=== PATIENT | male | born 1995 | race American Indian/Alaskan Native ===

== ENCOUNTER 2022-05-28 11:26 | Emergency (ER) | payer SELFPAY ==
[2022-05-28 11:38] VITALS: BP 139/75; PULSE 113; RESP 19; TEMP 36.8; O2SAT 96; BMI 31.3
--- NOTE | 2022-05-28 12:04 | CT_ITS ---
WS: [id number] CT HEAD TECHNIQUE: Noncontrast CT of the head obtained from the skullbase to the vertex. CLINICAL INFORMATION: headache COMPARISON: None. DLP: 1009.[address] scans at [facility] use at least one of these dose optimization techniques: automated e xposure control; mA and/or kV adjustment per patient size (includes targeted exams where dose is matc hed to clinical indication); or iterative reconstruction. FINDINGS: No evidence of intracranial hemorrhage or mass effect. Ventricular system and basal cisterns are dixon nt. No extra-axial fluid collections. No evidence of mass or mass effect. Normal trujillo-white different iation. Paranasal sinuses and mastoid air cells are well aerated. .Normal visualized soft tissues. CT/CT head wo con* [id number] IMPRESSION: 1. No evidence of intracranial hemorrhage or mass effect 2. No acute intracranial findings.
--- NOTE | 2022-05-28 14:11 | W.ED.HA ---
HPI - Headache General: Chief Complaint: Headache Stated Complaint: Headache Time Seen by Provider: 05/28/22 14:11 Source: patient Mode of arrival: ambulatory Limitations: no limitations History of Present Illness: Patient is a 27-year-old male who presents to ED today with what he describes as a migraine headache. Patient states he was diagnosed years ago with excessive migraine headaches he states that stemmed from a concussion after getting struck in the head by a 2 x 4 board. Patient states he used to take sumatriptan for his headaches but states he has not had a migraine in 1.5 years. He states this headache began earlier today and feels like previous HAs. He is currently rating it at a 6-7/10. He states pain is worse with light and sound which is consistent with his previous migraine headaches. No recent injury or trauma. He has not been having fevers. No neck pain or stiffness. He does not complain of any visual loss or changes. States he carries a lot of stress in his neck/shoulders and thinks this could be contributing. MD elicited complaint: headache and migraine Pertinent past history: migraines Onset (ago): hour(s) Onset description: gradually Severity: moderate Pain scale (0-10): 7 Exacerbating factors: light and noise Relieving factors: other (reports HAs are usually alleviated by rest, dark/quiet room) Context: occurred at rest Associated symptoms: Reports no associated symptoms; Deny chest pain, confusion, fever(s), malaise, nausea, rash or vomiting Treatments prior to arrival: acetaminophen and ibuprofen Review of Systems Const: Denies: fever(s), chills, body aches, fatigue or malaise Eyes: Denies: change in vision, blurry vision, photophobia, eye discomfort or floaters ENMT: Denies: throat pain, odynophagia, nasal discharge or nasal congestion Card: Denies: chest pain Resp: Denies: dyspnea GI: Denies: nausea or vomiting Musc: Denies: neck pain, back pain, extremity pain or joint pain Skin/Breast: Denies: rash Neuro: Reports: headache(s); Denies: numbness in extremities, weakness in extremities, sensory changes, lack of coordination, difficulty walking, frequent falls, dizziness, vertigo, confusion, behavioral changes, Slurred speech present, difficulty communicating thoughts, seizure-like activity or involuntary movements Physical Exam Const: COMMON NORMALS: no acute distress, average body habitus, patient oriented x3, no limitations, alert and well nourished GENERAL APPEARANCE: cooperative ORIENTATION/CONSCIOUSNESS: Yes awake, Yes oriented to person, Yes oriented to place and Yes oriented to time HENMT: COMMON NORMALS: normocephalic and atraumatic HEAD & SCALP: normal to inspection, normocephalic and atraumatic Eye: GENERAL EYE: appearance normal, both eyes and all related structures Neck/C-Spine: COMMON NORMALS: no meningeal signs Neuro: JOHANNA COMA SCALE: document GCS findings Johanna coma scale eye opening: Spontaneous Alviso coma scale verbal response: Orientated Johanna coma scale motor response: Obey commands Alviso coma scale total score: 15 COMMON NORMALS: patient oriented x3, CN's II-XII intact bilaterally, moves all extremities, no focal motor deficits and no sensory deficits noted SENSORIUM/ORIENTATION: Yes alert, Yes oriented to person, Yes oriented to place and Yes oriented to time MENINGEAL SIGNS: Yes no meningeal signs Skin: COMMON NORMALS: no rashes or lesions noted GENERAL SKIN EXAM: no rashes or lesions noted Course Vital Signs: Vital signs: Vital Signs Temperature 98.2 F 05/28/22 11:38 Pulse Rate 113 H 05/28/22 11:38 Respiratory Rate 19 H 05/28/22 11:38 Blood Pressure 139/75 05/28/22 11:38 Pulse Oximetry 96 05/28/22 11:38 MDM - Headache Medical Decision Making CT ordered by another provider in triage. This is negative. PALACIOS down from a 6-7/10 to a 0. PALACIOS similar to previous migraines. No red flags on history or physical exam. Patient states he carries a lot of stress in my shoulders and thinks this could have contributed to his headache. He states he has tried Robaxin previously that seemed to help. I think this is reasonable. Will place referral to get him set up with a PCP. Return to ED precautions given. Lab Data Radiology Impressions Head CT 05/28/22 12:04 IMPRESSION: 1. No evidence of intracranial hemorrhage or mass effect 2. No acute intracranial findings. Discharge Plan Discharge Patient Disposition: Home Clinical Impression: Tension headache Condition: Stable Prescriptions: New methocarbamol 500 mg tablet 500 mg PO Q6H Qty: 14 0RF Discharge Orders: Discharge ED (Routine); Ordered 05/28/22 Ordered By: Trixie Leija Coding Level of Care Code ED Web Marketing Manager for Chg Fwd Exam Detailed
[2022-05-28] MEDS: ketorolac 60 mg/2 mL INJ IM (14:41)
[2022-05-28] MEDS: SUMAtriptan 6 mg/0.5 mL SDV SUBCUT (14:46)
[2022-05-28 15:44] VITALS: BP 140/97; PULSE 86; RESP 18; O2SAT 97
--- NOTE | 2022-05-29 14:50 | DCPLANNER ---
manager athletics had message to speak with patient about getting a primary care physician. manager athletics called patient at phone number [phone], unable to speak with patient at this time, a voicemail was left for patient to return gearcase assembler phone call.
--- NOTE | 2022-05-30 10:41 | DCPLANNER ---
Addendum entered by Liberty Jo 07/02/22 16:29: Patients appointment scheduled with Dr. Kimble - appointment was rescheduled. Original Note: manager it security had message to speak with patient about getting patient established with a primary care physician. Patient stated that he would like to get established with Dr. Gomez, casey saw operator called clinic, the earlies that patient could be seen was August. manager it security offered to get patient established with Dr. Kimble, patient stated that would be fine. manager it security called [facility], spoke with Becca, gave clinic patients information. A follow up appointment was scheduled for Friday, June 19, 2022 at 1:[address] Hall. manager it security called patient and gave him the appointment information.
== END 2022-05-28 15:48 | disposition home or self-care (01) ==
PROVIDERS: Emergency Provider Physician Assistant
DX: G44.209 Tension-type headache, unspecified, not intractable (principal)
CPT/HCPCS: 70450; 96372; 99284; J1885; J3030

== ENCOUNTER 2022-06-05 01:20 | Emergency (ER) | payer SELFPAY ==
--- NOTE | 2022-06-05 01:30 | XRR_ITS ---
PROCEDURE INFORMATION: Exam: XR Abdomen Exam date and time: 06/05/2022 1:34 AM Age: 27 years old Clinical indication: Abdominal pain; Generalized; Patient HX: C/O abd pain with constipation. No bm x 2 days. TECHNIQUE: Imaging protocol: Radiologic exam of the abdomen. Views: Frontal supine view of the abdomen. 1 View. COMPARISON: No relevant prior studies available. FINDINGS: Gastrointestinal tract: There is a non-obstructive bowel gas pattern. There is no abnormal dilatation of bowel loops. Some gas and fecal material is seen throughout the colon, suggestive of [id number] constipation. There is no pneumatosis or mass effect. There is no organomegaly. Intraperitoneal space: No definite free air on the supine view exam. Bones/joints: There are no acute osseous abnormalities noted. Soft tissues: No radiopaque foreign body or abnormal opacity. XR/XR KUB [id number] IMPRESSION: Nonobstructive bowel gas pattern. [id number] constipation.
--- NOTE | 2022-06-05 01:31 | W.ED.ABDPA2 ---
HPI - Abdominal Pain General: Chief Complaint: Abdominal Pain Stated Complaint: Abd Pain Time Seen by Provider: 06/05/22 01:27 History of Present Illness: 27-year-old male patient comes in [facility] with complaints of constipation. Patient reports is day 3 without a good bowel movement. Patient reports poor appetite and abdominal discomfort. Patient appears in no pain. Patient appears in no acute distress. Associated Symptoms: Reports constipation and nausea Review of Systems General: Reports: 10 or more systems reviewed and unremarkable except in HPI and below Card: Denies: chest pain Resp: Denies: dyspnea GI: Reports: abdominal pain, nausea and constipation Physical Exam Const: COMMON NORMALS: alert HENMT: COMMON NORMALS: normocephalic HEAD & SCALP: normocephalic Neck/C-Spine: COMMON NORMALS: full ROM Resp: COMMON NORMALS: normal respiratory effort and clear to auscultation bilaterally AUSCULTATION: clear to auscultation bilaterally Cardio: COMMON NORMALS: regular rate RATE: regular rate GI: COMMON NORMALS: Soft to palpation and non-tender AUSCULTATION: Yes normoactive bowel sounds PALPATION: Yes Soft to palpation Extremity: COMMON NORMALS: normal to inspection Neuro: SENSORIUM/ORIENTATION: Yes alert Skin: COMMON NORMALS: no rashes or lesions noted GENERAL SKIN EXAM: no rashes or lesions noted Course Vital Signs: Vital signs: Vital Signs Temperature 97.9 F 06/05/22 01:34 Pulse Rate 118 H 06/05/22 01:34 Respiratory Rate 18 06/05/22 01:34 Blood Pressure 145/97 06/05/22 01:34 Pulse Oximetry 97 06/05/22 01:34 MDM - Abdominal Pain Medical Decision Making 27-year-old male patient comes in today with complaints of constipation. On exam patient's abdomen soft with normal active bowel sounds. Patient appears nontoxic. Patient appears in no pain. Vital signs are normal. Differential diagnosis includes constipation, malingering, bowel obstruction. KUB noted of moderate amount of stool in the colon. Patient was given 1 L of IV fluids and a dose of lactulose. Patient was recommended to use MiraLAX 1 capful 3 times a day until good bowel movement. Patient was also recommended to drink at least 3 L of water/Gatorade a day while using MiraLAX for constipation. Discharge Plan Discharge Patient Disposition: Home Clinical Impression: Constipation Qualifiers: Constipation type: unspecified constipation type Qualified Code(s): K59.00 - Constipation, unspecified Condition: Stable Prescriptions: New Miralax 17 gram/dose powder 17 g PO TID PRN (Reason: constipation) Qty: 238 0RF No Action methocarbamol 500 mg tablet 500 mg PO Q6H Qty: 14 0RF Discharge Orders: Discharge ED (Routine); Ordered 06/05/22 Ordered By: Jona Haynes Discharge Diet: As Directed Discharge Activity: Increase activity as tolerated Patient Instructions: Constipation (ED) Activity Restrictions/Additional Instructions: Drink plenty of fluids. Use MiraLAX 17 g 3 times a day until a good bowel movement. Drink at least 3 L of water/Gatorade mixture while using the MiraLAX to maintain hydration and electrolytes. Follow-up with primary care as needed. Eat a healthy diet with plenty of fiber and fresh fruits and vegetables. Continue with MiraLAX 17 g daily to maintain normal bowel movements reducing the dosing for watery stools or anal leakage. Coding Level of Care Code ED Concrete Batch Plant Operator for Chg Fwd Exam Comprehensive
[2022-06-05 01:34] VITALS: BP 145/97; PULSE 118; RESP 18; TEMP 36.6; O2SAT 97; BMI 28.5
[2022-06-05] MEDS: sodium chloride 0.9% 1,000 ML 999 ML IV (01:58)
[2022-06-05] MEDS: lactulose oral liq 20 gm/30 mL UDC 30 GM PO (01:58)
[2022-06-05] MEDS: ondansetron 2 mg/ML SDV 2 mL 4 MG IVP (01:59)
== END 2022-06-05 03:05 | disposition home or self-care (01) ==
PROVIDERS: Emergency Provider Nurse Practitioner Family
DX: K59.00 Constipation, unspecified (principal)
CPT/HCPCS: 74018; 96361; 96374; 99284; J2405; J7030

== ENCOUNTER → 2022-08-13 11:15 | Outpatient (BNVA) | payer SELFPAY | PROVIDERS: Visit Provider Family Medicine | DX: I10 Essential (primary) hypertension (principal); M25.511 Pain in right shoulder; M25.512 Pain in left shoulder; G89.29 Other chronic pain; M24.411 Recurrent dislocation, right shoulder; L25.9 Unspecified contact dermatitis, unspecified cause; M54.9 Dorsalgia, unspecified; M62.838 Other muscle spasm | CPT/HCPCS: 80053; 80061; 85025 ==

== ENCOUNTER 2022-10-19 22:16 | Emergency (ER) | payer SELFPAY ==
[2022-10-19 22:35] VITALS: BP 138/84; PULSE 105; RESP 18; TEMP 36.5; O2SAT 96; BMI 34.0
--- NOTE | 2022-10-19 22:45 | CTR_ITS ---
PROCEDURE INFORMATION: Exam: CT Head Without Contrast Exam date and time: 10/19/2022 10:54 PM Age: 27 years old Clinical indication: Injury or trauma; Fall; Concussion/head injury; Additional info: Fall down stairs hit head, worst headache, denies loc TECHNIQUE: Imaging protocol: Computed tomography of the head without contrast. Radiation optimization: All CT scans at this facility use at least one of these dose optimization techniques: automated exposure control; mA and/or kV adjustment per patient size (includes targeted exams where dose is matched to clinical indication); or iterative reconstruction. COMPARISON: CT head wo con* [id number] 05/28/2022 12:18 PM RADIATION DOSE METRICS: Total DLP (mGy-cm): 1079.05 FINDINGS: Brain: No focal hemorrhage or midline shift is identified. Cerebral ventricles: No ventriculomegaly or evidence of acute hydrocephalus. Paranasal sinuses: The partially assessed sinuses are grossly clear. Mastoid air cells: Visualized mastoid air cells are well aerated. Bones/joints: No displaced skull fracture is noted. Soft tissues: Unremarkable. CT/CT head wo con* [id number] IMPRESSION: No acute intracranial abnormality.
--- NOTE | 2022-10-19 22:45 | XRR_ITS ---
PROCEDURE INFORMATION: Exam: XR Right Hip Exam date and time: 10/19/2022 10:50 PM Age: 27 years old Clinical indication: Injury or trauma; Fall; Blunt trauma (contusions or hematomas); Right; Hip; Additional info: Fall with hip pain TECHNIQUE: Imaging protocol: Radiologic exam of the Right hip. Views: 1 view hip with pelvis when performed. COMPARISON: CR XR KUB [id number] 06/05/2022 1:34 AM FINDINGS: Bones/joints: Unremarkable. No acute fracture. Soft tissues: Mild right hip soft tissue swelling. XR/XR hip RT 2-3V wo/w pel* [id number] IMPRESSION: No acute findings.
--- NOTE | 2022-10-19 22:46 | W.ED.FALL ---
HPI - Fall General: Chief Complaint: Fall Stated Complaint: fell hit head and hip Time Seen by Provider: 10/19/22 22:39 History of Present Illness: Patient is a 27-year-old male comes to the ED after fall injury. Patient says injury occurred just prior to arrival. He was walking down his steps and fell down 3 steps because he slipped. He states that his right hip hit the stairs and the right side of his head hit the stairs as well. Denies any loss of consciousness but has a 10 out of 10 headache on the right side of his hand. He also was complaining of having 10 out of 10 pain in his right hip with some swelling there as well. He states it hurts for him to move his right leg. Denies any neuro symptoms such as vision changes, numbness tingling 1 side of face or body or any weakness to 1 side of face or body. Associated symptoms-after fall: Reports headache(s); Denies abdominal pain, chest pain, hematuria or neck pain Review of Systems Const: Denies: fever(s), chills or fatigue Eyes: Denies: change in vision or eye discomfort ENMT: Denies: throat pain, odynophagia, nasal discharge or nasal congestion Card: Denies: chest pain, palpitations, edema, swelling of feet/ankles, dyspnea on exertion or orthopnea Resp: Denies: dyspnea, productive cough or non-productive cough GI: Denies: abdominal pain, nausea, vomiting, diarrhea, constipation or hematochezia : Denies: flank pain, difficulty urinating, dysuria or hematuria Musc: Reports: extremity pain (Right hip); Denies: neck pain, back pain or extremity swelling Skin/Breast: Denies: rash or new lesions Neuro: Reports: headache(s); Denies: numbness in extremities or weakness in extremities PFS ED PFSH: Medical History Acute idiopathic urticaria Anxiety Back pain Depression Hypertension Recurrent dislocation, right shoulder Scoliosis Shoulder pain Family History Mother CAD (coronary artery disease) Hypertension Diabetes Grandmother Diabetes Mother Hyperlipidemia Denies family history of Clotting disorder Dementia Chronic kidney disease (CKD) Anesthesia complication Bleeding disorder Lung disease Cancer Stroke Social History Smoking and tobacco status: current every day smoker cigars Cigars smoked per week: 30 Second hand smoke exposure: No Smoking risk assessment/counseling performed?: No Alcohol intake: former Year of sobriety/quit date alcohol: 22 Desire information about alcohol rehabilitation?: No Counseling given: No Desire information about substance/drug rehabilitation?: No Counseling given: No Adopted: No Caregiver/support person: No Lives independently: Yes Marital status: Single service: No Current occupational status: unemployed History of recent travel: No Current gender identity: Male Physical Exam Const: COMMON NORMALS: no acute distress, patient oriented x3 and alert GENERAL APPEARANCE: cooperative and comfortable HENMT: COMMON NORMALS: normocephalic HEAD & SCALP: normocephalic MOUTH: Normal oral and palatal mucosa present THROAT: posterior oropharynx normal and uvula midline Eye: COMMON NORMALS: Equal, round and reactive pupils present and EOMs intact bilaterally GENERAL EYE: appearance normal, both eyes and all related structures PUPIL: Yes Equal, round and reactive pupils present Neck/C-Spine: COMMON NORMALS: supple GENERAL: Yes normal visual inspection Lymph: LYMPHATIC: no lymphadenopathy noted Resp: COMMON NORMALS: normal respiratory effort, No retractions, No use of accessory muscles and clear to auscultation bilaterally AUSCULTATION: clear to auscultation bilaterally Cardio: COMMON NORMALS: regular rate, regular rhythm, S1 normal heart sound present, S2 normal heart sound present, No gallops present (Cardio), No clicks present (Cardio), No murmurs present (Cardio) and Peripheral pulses 2+ throughout RATE: regular rate RHYTHM: regular rhythm HEART SOUNDS: S1 normal heart sound present and S2 normal heart sound present PERIPHERAL PULSES: Peripheral pulses 2+ throughout GI: COMMON NORMALS: Normal to inspection, nondistended, normoactive bowel sounds present, Soft to palpation, non-tender and no masses PALPATION: Yes Soft to palpation : COMMON NORMALS: Yes no CVA tenderness BLADDER/KIDNEY EXAM: Yes no CVA tenderness Back/Pelvis: COMMON NORMALS: no CVA tenderness Extremity: GENERAL: Yes normal exam except as noted Neuro: COMMON NORMALS: patient oriented x3, CN's II-XII intact bilaterally, moves all extremities, no focal motor deficits and no sensory deficits noted SENSORIUM/ORIENTATION: Yes alert SENSORY EXAM: Yes extremities (intact) MOTOR EXAM: 5/5 motor strength present throughout Skin: COMMON NORMALS: no rashes or lesions noted GENERAL SKIN EXAM: no rashes or lesions noted and dry skin Course Vital Signs: Vital signs: Vital Signs Temperature 97.7 F 10/19/22 22:35 Pulse Rate 98 10/19/22 23:49 Respiratory Rate 18 10/19/22 23:49 Blood Pressure 131/82 10/19/22 23:49 Pulse Oximetry 96 10/19/22 23:49 Oxygen Delivery Me thod 10/19/22 22:35 MDM - Fall Medical Decision Making Patient is a 27-year-old male comes to the ED after fall injury. Patient says injury occurred just prior to arrival. He was walking down his steps and fell down 3 steps because he slipped. He states that his right hip hit the stairs and the right side of his head hit the stairs as well. Denies any loss of consciousness but has a 10 out of 10 headache on the right side of his hand. He also was complaining of having 10 out of 10 pain in his right hip with some swelling there as well. Vitals are stable. Exam is benign and patient appears in no acute distress or pain. Neuro exam shows no deficits. Head CT shows no acute findings and hip x-ray shows no acute fractures or findings. He was given a dose of Toradol here in the ED to help with his headache and right hip pain. Patient was diagnosed with minor head injury and contusion of right hip. Told to follow-up with his PCP in the next week for reevaluation. Patient understood and agreed with plan. Lab Data Radiology Impressions Head CT 10/19/22 22:45 IMPRESSION: No acute intracranial abnormality. Hip/Pelvis X-Ray 10/19/22 22:45 IMPRESSION: No acute findings. Discharge Plan Discharge Patient Disposition: Home Clinical Impression: Contusion of hip, right Qualifiers: Encounter type: initial encounter Qualified Code(s): S70.01XA - Contusion of right hip, initial encounter Minor head injury without loss of consciousness Qualifiers: Encounter type: initial encounter Qualified Code(s): S09.90XA - Unspecified injury of head, initial encounter Condition: Stable Prescriptions: New ibuprofen 800 mg tablet 800 mg PO Q8H PRN (Reason: pain) Qty: 20 0RF No Action hydrocortisone 1 % cream 1 applic topical TID PRN (Reason: skin irritation) Qty: 28.4 1RF Rx Instructions: use TID for 10 days quetiapine [Seroquel] 300 mg tablet 300 mg PO DAILY Qty: 30 0RF loratadine 10 mg tablet 10 mg PO DAILY Qty: 30 2RF cyclobenzaprine 5 mg tablet 10 mg PO TID PRN (Reason: muscle spasm) Qty: 14 0RF duloxetine 30 mg capsule,delayed release(DR/EC) 30 mg PO BID Discharge Orders: Discharge ED (Routine); Ordered 10/19/22 Ordered By: Khanh Randall Referrals: Rickey Edmondson MD [Primary Care Provider] - Discharge Diet: Regular Discharge Activity: Increase activity as tolerated Patient Instructions: Head Injury (ED), Hip Contusion (ED) Activity Restrictions/Additional Instructions: Follow-up with medical provider as directed in the next 5 to 7 days for reevaluation. Take medications as prescribed. Return to the ER or your medical provider if condition worsens. Please read and understand discharge instructions. Thank you for choosing [facility] for your healthcare needs today. Please realize this is an emergency room and that we are providing you with a medical screening exam and this may not be complete and all inclusive of all the testing and or work up that you may need to determine your ailment or severity of your illness. It is very important that you follow up as instructed or that you return to the Emergency Department should you have concerns or if your condition changes or worsens in any way. Coding Level of Care Code ED Account Manager Trainee for Alena Barrett Exam Comprehensive
[2022-10-19] MEDS: ketorolac 60 mg/2 mL INJ IM (23:13)
[2022-10-19 23:49] VITALS: BP 131/82; PULSE 98; RESP 18; O2SAT 96
== END 2022-10-19 23:50 | disposition home or self-care (01) ==
PROVIDERS: Emergency Provider Physician Assistant; PCP Family Medicine
DX: S09.8XXA Other specified injuries of head, initial encounter (principal); S70.01XA Contusion of right hip, initial encounter; I10 Essential (primary) hypertension; F17.210 Nicotine dependence, cigarettes, uncomplicated; W10.8XXA Fall (on) (from) other stairs and steps, initial encounter
CPT/HCPCS: 70450; 73502; 96372; 99284; J1885

== ENCOUNTER → 2022-11-07 16:27 | Outpatient (BNVA) | payer SELFPAY | PROVIDERS: PCP Family Medicine; Visit Provider Emergency Medicine | DX: B34.9 Viral infection, unspecified (principal); J02.9 Acute pharyngitis, unspecified | CPT/HCPCS: 87071; 87880 ==

== ENCOUNTER 2022-12-14 21:29 | Emergency (ER) | payer OTHER, SELFPAY ==
[2022-12-14 21:37] VITALS: BP 126/81; PULSE 125; RESP 16; TEMP 36.2; O2SAT 94; BMI 37.1
[2022-12-14 23:41] VITALS: BP 139/79; PULSE 105; RESP 16; O2SAT 99
--- NOTE | 2022-12-15 00:55 | PC.NURSE ---
Patients also in the ER. Both pts refused to stay in their rooms, on monitors. Advised by staff and security that they can not keep leaving their rooms and walking back and forth. demanding to leave but refusal to sign AMA paperwork. then walked into pts room and told him we are leaving now and do not sign anything . Pt let out of ER by security solutions engineer.
--- NOTE | 2022-12-15 02:33 | W.ED.BACK ---
HPI - Back Pain/Injury General: Chief Complaint: Back Pain/Injury Stated Complaint: back pain, fell on right hip Time Seen by Provider: 12/15/22 00:03 Source: patient History of Present Illness: 27-year-old male he says he has had back pain on and off for quite some time. He evidently fell yesterday landing on his right hip, with shortness back worse. He is able to bear weight on the right hip. Pain does not run into his legs. MD elicited complaint: back pain and back injury Pertinent past history: prior back pain Onset (ago): hour(s) Timing: constant Severity: moderate Similar Symptoms Previously: Yes Location: lumbar spine Radiation: buttocks Associated symptoms: Deny abdominal pain, difficulty walking or fever(s) Review of Systems Const: Denies: fever(s) Card: Denies: chest pain Resp: Denies: dyspnea GI: Denies: abdominal pain Neuro: Denies: difficulty walking PFSH ED PFSH: Medical History Acute idiopathic urticaria Anxiety Back pain Depression Hypertension Recurrent dislocation, right shoulder Scoliosis Shoulder pain Family History Mother CAD (coronary artery disease) Hypertension Diabetes Grandmother Diabetes Mother Hyperlipidemia Denies family history of Clotting disorder Dementia Chronic kidney disease (CKD) Anesthesia complication Bleeding disorder Lung disease Cancer Stroke Social History Smoking and tobacco status: current every day smoker cigars Cigars smoked per week: 30 Second hand smoke exposure: No Smoking risk assessment/counseling performed?: No Alcohol intake: former Year of sobriety/quit date alcohol: 21 Desire information about alcohol rehabilitation?: No Counseling given: No Desire information about substance/drug rehabilitation?: No Counseling given: No Adopted: No Caregiver/support person: No Lives independently: Yes Marital status: Single service: No Current occupational status: unemployed History of recent travel: No Current gender identity: Male Course Vital Signs: Vital signs: Vital Signs Temperature 97.1 F L 12/14/22 21:37 Pulse Rate 105 H 12/14/22 23:41 Respiratory Rate 16 12/14/22 23:41 Blood Pressure 139/79 12/14/22 23:41 Pulse Oximetry 99 12/14/22 23:41 Oxygen Delivery Me thod 12/14/22 23:41 MDM - Back Pain/Injury Medical Decision Making This patient left before completion of his evaluation. X-rays were to be ordered, but the patient decided to leave. Medically, he appeared quite stable Discharge Plan Discharge Patient Disposition: Left Without Being Seen Clinical Impression: Back pain Coding Level of Care Code ED Drug Regulatory Affairs Specialist for Alena Barrett
== END 2022-12-15 00:53 | disposition left against medical advice (07) ==
PROVIDERS: Emergency Provider Emergency Medicine; PCP Family Medicine
DX: M54.9 Dorsalgia, unspecified (principal); Z53.21 Procedure and treatment not carried out due to patient leaving prior to being seen by health care provider; F17.210 Nicotine dependence, cigarettes, uncomplicated; I10 Essential (primary) hypertension
CPT/HCPCS: 99281

== ENCOUNTER 2023-04-01 20:00 | Outpatient (CLI) | payer OTHER, SELFPAY | END 2023-04-02 06:04 | disposition home or self-care (01) | LOC: SLEEP 04-08 15:20 | PROVIDERS: PCP Family Medicine; Visit Provider Family Medicine | DX: G47.33 Obstructive sleep apnea (adult) (pediatric) (principal); R06.83 Snoring | CPT/HCPCS: 95810 ==

== ENCOUNTER 2023-04-09 11:08 | Outpatient (CLI) | payer OTHER, SELFPAY ==
--- NOTE | 2023-04-09 10:45 | USCV_ITS ---
Quincy Ovalle Age: 28 Gender: M : 1995 Exam Date: 04/09/2023 11:56 Ordering Phys: Rickey Edmondson MD Technologist: CT Exam Location: [facility] [place]_ Indication: pain PROCEDURES: Venous duplex imaging was performed in only the right lower extremity. On the right side, the common femoral, superficial femoral, profunda femoral, popliteal, posterior tibial, greater saphenous veins and the peroneal trunk were identified and interrogated in the standard fashion. FINDINGS: Normal 2-D Doppler and augmentation and compressibility throughout the lower extremity venous structures. Additional imaging through the proximal calf veins also reveals no thrombus. Limited evaluation of the greater saphenous vein is patent with no thrombus. CONCLUSIONS No DVT right lower extremity. Dr. Amanda Lee DO (Electronically Signed) Final Date: 09 Apr 2023 16:02 S
== END 2023-04-09 11:09 | disposition home or self-care (01) ==
LOC: RAD 11:13
PROVIDERS: PCP Family Medicine; Visit Provider Family Medicine
DX: M79.604 Pain in right leg (principal)
CPT/HCPCS: 93971

== ENCOUNTER 2023-04-23 11:48 | Emergency (ER) | payer OTHER, SELFPAY ==
[2023-04-23 11:55] VITALS: BP 145/93; PULSE 92; RESP 18; TEMP 36.9; O2SAT 92; BMI 35.5
--- NOTE | 2023-04-23 12:23 | ED_ITS ---
HPI - Chest Pain General: Chief Complaint: Chest Pain Stated Complaint: Chest Pain/ High blood pressure Time Seen by Provider: 04/23/23 12:16 Source: patient Mode of arrival: ambulatory Limitations: no limitations History of Present Illness: This 28-year-old male with a past history of anxiety, depression and hypertension was brought in by mom for evaluation of left-sided chest pain that started at 1030 this morning. Patient just woke up from sleep when he started experiencing the pain. The pain also has a pressure component to it. It did not radiate and there was no associated nausea, shortness of breath or vomiting. Pain is worsened by certain movements like rotation or abduction of the s houlder. Currently, he is pain-free. Mom notes that she has a history of coronary artery disease and heart disease does run in the family. So when patient complained of the chest pain this morning, she decided to bring him in to be checked out. Review of Systems Const: Denies: chills, body aches or change in appetite Eyes: Denies: change in vision or eye discharge ENMT: Denies: throat pain, dental pain or nasal discharge Card: Reports: chest pain : Denies: dysuria Musc: Denies: neck pain or back pain Neuro: Denies: headache(s) or weakness in extremities Psych: Denies: depression Allen/Lymph: Denies: easy bruising All/Imm: Denies: urticaria, tongue swelling or facial swelling PFSH ED PFSH: Medical History Acute idiopathic urticaria Anxiety Back pain Depression Hypertension Recurrent dislocation, right shoulder Scoliosis Shoulder pain Family History Mother CAD (coronary artery disease) Hypertension Diabetes Grandmother Diabetes Mother Hyperlipidemia Denies family history of Clotting disorder Dementia Chronic kidney disease (CKD) Anesthesia complication Bleeding disorder Lung disease Cancer Stroke Social History Smoking and tobacco status: former smoker Quit status (tobacco): has quit using tobacco Former quit date comment: 12/2022 Second hand smoke exposure: No Smoking risk assessment/counseling performed?: No Alcohol intake: former Year of sobriety/quit date alcohol: 21 Desire information about alcohol rehabilitation?: No Counseling given: No Substance/Drug Use: former Date of last use: marijuana Desire information about substance/drug rehabilitation?: No Counseling given: No Adopted: No Caregiver/support person: No Lives independently: Yes Marital status: Single service: No Current occupational status: unemployed Do you think of yourself as: Straight/Heterosexual Current gender identity: Male Physical Exam Const: COMMON NORMALS: no acute distress, patient oriented x3, no limitations and alert HENMT: COMMON NORMALS: normocephalic HEAD & SCALP: normocephalic Eye: COMMON NORMALS: EOMs intact bilaterally Neck/C-Spine: COMMON NORMALS: full ROM and supple Chest: COMMONS NORMALS: normal inspection of the chest Resp: COMMON NORMALS: normal respiratory effort, No retractions, No use of accessory muscles and clear to auscultation bilaterally AUSCULTATION: clear to auscultation bilaterally Cardio: COMMON NORMALS: regular rate, regular rhythm and No murmurs present (Cardio) RATE: regular rate RHYTHM: regular rhythm GI: COMMON NORMALS: Normal to inspection, nondistended, normoactive bowel sounds present and non-tender : COMMON NORMALS: Yes no CVA tenderness BLADDER/KIDNEY EXAM: Yes no CVA tenderness Back/Pelvis: COMMON NORMALS: no CVA tenderness and no thoracic nor lumbar tenderness Extremity: GENERAL: Yes normal exam except as noted Neuro: COMMON NORMALS: patient oriented x3 and no focal motor deficits SENSORIUM/ORIENTATION: Yes alert Psych: COMMON NORMALS: mental status grossly normal and cooperative Course Vital Signs: Vital signs: Vital Signs Temperature 98.4 F 04/23/23 11:55 Pulse Rate 84 04/23/23 15:59 Respiratory Rate 18 04/23/23 11:55 Blood Pressure 134/88 04/23/23 15:59 Pulse Oximetry 95 04/23/23 15:59 Oxygen Delivery Me thod Room Air 04/23/23 13:35 MDM - Chest Pain Medical Decision Making Medical decision making: History as above. Patient's chest pain is reproducible with certain movements and also by direct p ressure on the left anterior chest wall. Initial troponin and repeat troponin 2 hours later are both negative with a delta of 0. Chest x-ray is negative for any acute intrathoracic process. Completed blood tests are unremarkable. At this time, I do not believe patient is having an acute coronary syndrome. Differentials like pneumonia, pleural effusion, pericardial effusion and pulmonary embolism are highly unlikely. I believe his pain is musculoskeletal in nature. He was advised to take [id number] Tylenol or Motrin as needed. He will follow-up with his primary care provider for reevaluation. Reasons to return were discussed. Patient and mom verbalized understanding and agree with the plan. Lab Data 04/23/23 14:10 04/23/23 14:10 Radiology Impressions Chest X-Ray 04/23/23 13:39 IMPRESSION: The lung volumes are low which may exaggerate the bronchovascular bundles with some subsegmental atelectasis left lung base more so than right. Some early peribronchial inflammation could also present in this fashion. Laboratory Results WBC 10.1 10^3/uL (4.0-10.0) H 04/23/23 14:10 RBC 5.76 10^6/uL (4.1-5.3) H 04/23/23 14:10 Hgb 16.8 g/dL (11.7-16.6) H 04/23/23 14:10 Hct 49.0 % (42.0-52.0) 04/23/23 14:10 MCV 85.1 fl (80-94) 04/23/23 14:10 MCH 29.2 pg (28.0-34.0) 04/23/23 14:10 MCHC 34.3 g/dL (30.0-36.0) 04/23/23 14:10 RDW 12.6 % (12.1-15.1) 04/23/23 14:10 Plt Count 230 10^3/cmm (130-400) 04/23/23 14:10 MPV 9.8 fL (7.4-10.4) 04/23/23 14:10 Neut % (Auto) 59.4 % 04/23/23 14:10 Lymph % (Auto) 29.2 % 04/23/23 14:10 [place] % (Auto) 7.7 % 04/23/23 14:10 Eos % (Auto) 1.6 % 04/23/23 14:10 Baso % (Auto) 0.9 % 04/23/23 14:10 Neut # (Auto) 5.98 10^3/uL (1.8-7.7) 04/23/23 14:10 Lymph # (Auto) 2.9 10^3/uL (0.8-4.8) 04/23/23 14:10 [place] # (Auto) 0.8 10^3/uL (0.2-0.9) 04/23/23 14:10 Eos # (Auto) 0.2 10^3/uL (0.0-0.8) 04/23/23 14:10 Baso # (Auto) 0.1 10^3/uL (0.0-0.1) 04/23/23 14:10 Nucleated RBC % (auto) 0 % 04/23/23 14:10 Nucleated RBCs # 0.0 /100WBC 04/23/23 14:10 Sodium 139 mmol/L (136-145) 04/23/23 14:10 Potassium 4.2 mmol/L (3.5-5.1) 04/23/23 14:10 Chloride 103 mmol/L (98-107) 04/23/23 14:10 Carbon Dioxide 26 mmol/L (22-29) 04/23/23 14:10 Anion Gap 14.2 (5-19) 04/23/23 14:10 BUN 8 mg/dL (6-20) 04/23/23 14:10 Creatinine 0.7 mg/dL (0.7-1.2) 04/23/23 14:10 GFR Calculation 135.3 mL/min (90-130) H 04/23/23 14:10 Glucose 85 mg/dL (65-115) 04/23/23 14:10 Calculated Osmolality 286 mOsm/kg (285-295) 04/23/23 14:10 Calcium 9.7 mg/dL (8.5-10.5) 04/23/23 14:10 Total Bilirubin 0.6 mg/dL (0.15-1.2) 04/23/23 14:10 AST 29 U/L (0-40) 04/23/23 14:10 ALT 58 U/L (0-41) H 04/23/23 14:10 Alkaline Phosphatase 107 U/L (40-130) 04/23/23 14:10 Troponin T Baseline 6 ng/L (0-15) 04/23/23 14:10 Troponin T 120 Minute 6.00 ng/L (0-15) 04/23/23 16:15 Total Protein 7.6 g/dL (6.6-8.7) 04/23/23 14:10 Albumin 4.4 g/dL (3.5-5.2) 04/23/23 14:10 Globulin 3.2 g/dL (1.3-4.6) 04/23/23 14:10 Urine Color Light yellow (Yellow) 04/23/23 14:52 Urine Appearance Clear (CLEAR) 04/23/23 14:52 Urine pH 7 (5-7) 04/23/23 14:52 Ur Specific [place] 1.015 (1.005-1.030) 04/23/23 14:52 Urine Protein Neg (Negative) 04/23/23 14:52 Urine Glucose (UA) Norm (Normal) 04/23/23 14:52 Urine Ketones Negative (Negative) 04/23/23 14:52 Urine Blood Neg (Negative) 04/23/23 14:52 Urine Nitrate Negative (Negative) 04/23/23 14:52 Urine Bilirubin Neg (Negative) 04/23/23 14:52 Urine Urobilinogen Norm mg/dL (Negative) 04/23/23 14:52 Ur Leukocyte Esterase Negative (Negative) 04/23/23 14:52 Urine Opiates Screen Negative ng/mL (Negative) 04/23/23 14:52 Ur Barbiturates Screen Negative ng/mL (Negative) 04/23/23 14:52 Ur Phencyclidine Scrn Negative ng/mL (Negative) 04/23/23 14:52 Ur Amphetamines Screen Negative ng/mL (Negative) 04/23/23 14:52 U Benzodiazepines Scrn Negative ng/mL (Negative) 04/23/23 14:52 Urine Cocaine Screen Negative ng/mL (Negative) 04/23/23 14:52 U Marijuana (THC) Screen Negative ng/mL (Negative) 04/23/23 14:52 EKG Data EKG 1: Interpretation: 1227 hrs.: Sinus rhythm, rate of 88, normal axis, normal intervals, no STEMI. Discharge Plan Discharge Patient Disposition: Home Clinical Impression: Musculoskeletal chest pain Condition: Stable Prescriptions: No Action sumatriptan succinate 50 mg tablet 50 mg PO .COMPLEX Qty: 20 4RF Rx Instructions: 50 mg orally; loratadine 10 mg tablet 10 mg PO DAILY Qty: 90 2RF losartan 50 mg tablet 50 mg PO DAILY Qty: 90 1RF (DME) CPAP 14 setting See Rx Instructions .Route .MEDSUPPLY Qty: 1 0RF Rx Instructions: As directed (DME) CPAP mask, tubing, supplies See Rx Instructions .Route .MEDSUPPLY Qty: 1 1RF Rx Instructions: As directed ibuprofen 200 mg Tablet 800 mg PO Q6H PRN (Reason: Pain) Discharge Orders: Discharge ED (Routine); Ordered 04/23/23 Ordered By: Trisha Lea Referrals: Rickey Edmondson MD [Primary Care Provider] - Patient Instructions: Opioid Safety, Pain Management Activity Restrictions/Additional Instructions: Take [id number] Tylenol or Motrin as needed for pain. Follow-up with your primary care physician within a week for reevaluation. Return if you develop any new or worsening symptoms. Coding Level of Care Code ED Columnist/Commentator for Alena Barrett
--- NOTE | 2023-04-23 12:23 | ECG_ITS ---
[facility] Test Date: 2023-04-23 Pat Name: Quincy Ovalle Department: Room: Gender: Male Product Scientist: : 1995 Requested By: Joseph Martinez Order Number: [id number] Diaz MD: Jigar Vargas M.D. Measurements Intervals [place] Rate: 88 P: 51 [place]: 157 QRS: -3 QRSD: 126 T: 29 QT: 365 QTc: 443 Interpretive Statements SINUS RHYTHM POSSIBLE RIGHT VENTRICULAR CONDUCTION DELAY [RSR (QR) IN V1/V2] No previous ECG available for comparison Electronically Signed On 04-23-2023 13:19:42 CDT by Jigar Vargas M.D. [email or web address]
[2023-04-23 13:35] VITALS: BP 150/102; PULSE 88; O2SAT 95
--- NOTE | 2023-04-23 13:39 | XRR_ITS ---
PROCEDURE INFORMATION: Exam: XR Chest Exam date and time: 04/23/2023 1:43 PM Age: 28 years old Clinical indication: Pain; Angina pectoris; Additional info: Chest pain TECHNIQUE: Imaging protocol: Radiologic exam of the chest. 1image(s) are provided. Views: 1 view. COMPARISON: CR XR KUB [id number] 06/05/2022 1:34 AM. No previous chest radiograph is currently available. FINDINGS: Lungs: The lung volumes are low which may exaggerate the basilar and bronchovascular markings with some linear subsegmental atelectasis. No lobar consolidation is appreciated. Pleural spaces: No pneumothorax or significant pleural effusion is appreciated. Heart/Mediastinum: The cardiomediastinal silhouette is within normal. No cardiac decompensation is appreciated. Diaphragm: The hemidiaphragms are symmetric. Bones/joints: Osseous alignment is maintained.No displaced fracture or dislocation is appreciated. Soft tissues: No radiopaque foreign body or subcutaneous emphysema is appreciated. XR/XR chest 1V portable [id number] IMPRESSION: The lung volumes are low which may exaggerate the bronchovascular bundles with some subsegmental atelectasis left lung base more so than right. Some early peribronchial inflammation could also present in this fashion.
[2023-04-23 14:15] VITALS: BP 143/102; PULSE 92; O2SAT 95
[2023-04-23 14:22] LABS: Basophils # 0.1 10^3/uL (0.0-0.1); Basophils % 0.9 %; Eosinophils # 0.2 10^3/uL (0.0-0.8); Eosinophils % 1.6 %; Hemoglobin 16.8 g/dL (11.7-16.6); Lymphocytes # 2.9 10^3/uL (0.8-4.8); Lymphocytes % 29.2 %; Mean Corpuscular HGB Conc 34.3 g/dL (30.0-36.0); Mean Corpuscular Hemoglobin 29.2 pg (28.0-34.0); Mean Corpuscular Volume 85.1 fl (80-94); Mean Platelet Volume 9.8 fL (7.4-10.4); Monocytes # 0.8 10^3/uL (0.2-0.9); Monocytes % 7.7 %; Neutrophils # 5.98 10^3/uL (1.8-7.7); Neutrophils % 59.4 %; Nucleated Red Blood Cells % 0 %; Platelet Count 230 10^3/cmm (130-400); Red Blood Count 5.76 10^6/uL (4.1-5.3); Red Cell Distribution Width 12.6 % (12.1-15.1); White Blood Count 10.1 10^3/uL (4.0-10.0)
[2023-04-23 14:41] LABS: Troponin(5th) Baseline 6 ng/L (0-15)
[2023-04-23 14:44] LABS: Alanine Aminotransferase 58 U/L (0-41); Albumin Level 4.4 g/dL (3.5-5.2); Alkaline Phosphatase 107 U/L (40-130); Anion Gap 14.2 (5-19); Aspartate Amino Transferase 29 U/L (0-40); Blood Urea Nitrogen 8 mg/dL (6-20); Calcium 9.7 mg/dL (8.5-10.5); Carbon Dioxide 26 mmol/L (22-29); Chloride 103 mmol/L (98-107); Globulin 3.2 g/dL (1.3-4.6); Glomerular Filtration Rate 135.3 mL/min (90-130); Glucose 85 mg/dL (65-115); Osmolality Calculated 286 mOsm/kg (285-295); Potassium 4.2 mmol/L (3.5-5.1); Sodium 139 mmol/L (136-145); Total Bilirubin 0.6 mg/dL (0.15-1.2); Total Protein 7.6 g/dL (6.6-8.7)
[2023-04-23 14:58] LABS: Add Urine Microscopic? NO; Charge for UA Resulting for Rev
[2023-04-23 15:05] VITALS: BP 133/91; PULSE 88; O2SAT 96
[2023-04-23 15:27] LABS: Bilirubin Urine Neg (Negative); Blood Urine Neg (Negative); Glucose Urine UA Norm (Normal); Ketones Urine Negative (Negative); Leukocyte Esterase Urine Negative (Negative); Nitrate Urine Negative (Negative); Protein Urine Neg (Negative); Specific Gravity, Urine 1.015 (1.005-1.030); Urine Appearance Clear (CLEAR); Urine Color Light yellow (Yellow); Urobilinogen Urine Norm (Negative); pH Urine 7 (5-7)
[2023-04-23 15:35] LABS: Amphetamines Screen Urine Negative (Negative); Barbiturates Screen Urine Negative (Negative); Benzodiazepines Screen Urine Negative (Negative); Cocaine Screen Urine Negative (Negative); Opiate Screen Urine Negative (Negative); PCP Screen Urine Negative (Negative); THC Screen Urine Negative (Negative)
[2023-04-23 15:59] VITALS: BP 134/88; PULSE 84; O2SAT 95
[2023-04-23 17:01] LABS: Troponin 5 2HR Delta 0 ABS# (0-10)
[2023-04-23 17:09] VITALS: BP 134/88; PULSE 80; RESP 20; O2SAT 97
== END 2023-04-23 17:12 | disposition home or self-care (01) ==
PROVIDERS: Emergency Provider Family Medicine; PCP Family Medicine
DX: R07.89 Other chest pain (principal)
CPT/HCPCS: 36415; 71045; 80053; 80306; 81003; 84484; 85025; 93005; 99285

== ENCOUNTER → 2023-11-04 18:38 | Outpatient (BNVA) | payer SELFPAY | PROVIDERS: PCP Family Medicine; Visit Provider Registered Nurse Neonatal Intensive Care | DX: R50.9 Fever, unspecified (principal) | CPT/HCPCS: 87400 ==

== ENCOUNTER 2024-10-20 18:19 | Emergency (ER) | payer OTHER, SELFPAY ==
[2024-10-20 18:23] VITALS: BP 145/83; PULSE 92; RESP 16; TEMP 36.7; O2SAT 96; BMI 29.3
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
[2024-10-20 19:35] VITALS: RESP 18; O2SAT 96
[2024-10-20] MEDS: HYDROmorphone 1 mg/mL INJ 1 mL IVP (19:35)
[2024-10-20 19:38] VITALS: PULSE 90; RESP 18; O2SAT 97
[2024-10-20] MEDS: iohexol 350 mg/mL 500 mL Btl (per mL) IV (19:38)
[2024-10-20 19:42] VITALS: BP 148/81; PULSE 92; RESP 18; O2SAT 94
[2024-10-20 20:18] VITALS: BP 147/93; PULSE 89; O2SAT 97
== END 2024-10-20 20:19 | disposition home or self-care (01) ==
PROVIDERS: Emergency Provider Physician Assistant; PCP Family Medicine
DX: S20.219A Contusion of unspecified front wall of thorax, initial encounter (principal); V89.2XXA Person injured in unspecified motor-vehicle accident, traffic, initial encounter; Z87.891 Personal history of nicotine dependence; I10 Essential (primary) hypertension
CPT/HCPCS: 70450; 71260; 72125; 74177; 96374; 99285; J1171

== ENCOUNTER → 2024-10-29 12:25 | Outpatient (BNVA) | payer SELFPAY | PROVIDERS: PCP Family Medicine; Visit Provider Nurse Practitioner Family | DX: J02.9 Acute pharyngitis, unspecified (principal) | CPT/HCPCS: 87071; 87880 ==

== ENCOUNTER 2024-11-20 19:05 | Inpatient (IN) | payer SELFPAY ==
[2024-11-20 19:19] VITALS: BP 122/67; PULSE 107; RESP 20; TEMP 36.6; O2SAT 97; BMI 27.4
[2024-11-20 19:28] LABS: Basophils # 0.1 10^3/uL (0.0-0.1); Basophils % 0.8 %; Eosinophils # 0.1 10^3/uL (0.0-0.8); Eosinophils % 0.7 %; Hematocrit 48.7 % (37-53); Lymphocytes # 2.2 10^3/uL (0.8-4.8); Lymphocytes % 21.7 %; Mean Corpuscular HGB Conc 35.1 g/dL (30-55); Mean Corpuscular Hemoglobin 29.6 pg (27-33); Mean Corpuscular Volume 84.3 fl (82-101); Mean Platelet Volume 10.1 fL (7.4-10.4); Monocytes # 0.5 10^3/uL (0.2-0.9); Monocytes % 4.8 %; Neutrophils # 7.38 10^3/uL (1.8-7.7); Neutrophils % 71.4 %; Nucleated Red Blood Cells % 0 %; Platelet Count 290 10^3/cmm (157-399); Red Blood Count 5.78 10^6/uL (3.85-5.65); Red Cell Distribution Width 12.2 % (12.1-15.1); White Blood Count 10.33 10^3/uL (3.29-11.43)
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
[2024-11-20 19:47] LABS: Alanine Aminotransferase 24 U/L (0-41); Albumin Level 4.5 g/dL (3.5-5.2); Alkaline Phosphatase 85 U/L (40-130); Aspartate Amino Transferase 25 U/L (0-40); Blood Urea Nitrogen 8 mg/dL (6-20); Calcium 9.6 mg/dL (8.5-10.5); Carbon Dioxide 23 mmol/L (22-29); Chloride 105 mmol/L (98-107); Creatinine Clr Calc Pharmacy 134.4086; Globulin 2.7 g/dL (1.3-4.6); Glomerular Filtration Rate 115.1 mL/min (90-130); Glucose 147 mg/dL (65-115); Osmolality Calculated 293 mOsm/kg (285-295); Sodium 141 mmol/L (136-145); Total Bilirubin 0.3 mg/dL (0.15-1.2); Total Protein 7.2 g/dL (6.6-8.7)
[2024-11-20 19:49] LABS: Acetaminophen < 5.0 ug/mL (10-30); Alcohol Level < 10 mg/dL (0-10); Anion Gap 16.8 (5-19); Potassium 3.8 mmol/L (3.5-5.1); Salicylate < 0.3 mg/dL (3-10)
--- NOTE | 2024-11-20 20:39 | PC.NURSE ---
96 Hour Involuntary Hold Patient Rights have been read to the patient and a copy of the same has been given to him. Window And Siding Craftsman Gaby was present at bedside during the presentation of Rights.
[2024-11-20 21:18] VITALS: BP 123/76; PULSE 94; RESP 16; O2SAT 97
[2024-11-20 21:27] VITALS: BP 124/88; PULSE 88; RESP 18; TEMP 36.9; O2SAT 97
[2024-11-20 21:55] VITALS: BP 124/88; PULSE 88; RESP 18; TEMP 36.9; O2SAT 97
[2024-11-20] MEDS: acetaminophen 325 mg Tablet 650 MG PO (22:04)
[2024-11-20] MEDS: trazodone 50 mg Tablet PO (22:04)
[2024-11-20] MEDS: hyDROXYzine 25 mg Capsule 50 MG PO (22:04)
[2024-11-20] MEDS: OLANZapine 5 mg ODT PO (22:05)
[2024-11-21 06:00] VITALS: BP 124/85; PULSE 80; RESP 18; O2SAT 99
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
[2024-11-21] MEDS: metoprolol succinate ER (24 HR) 25 mg Tablet PO (08:31)
[2024-11-21] MEDS: cetirizine 10 mg Tablet PO (08:31)
[2024-11-21 09:16] LABS: Amphetamines Screen Urine Negative (Negative); Barbiturates Screen Urine Negative (Negative); Benzodiazepines Screen Urine Negative (Negative); Cocaine Screen Urine Negative (Negative); Opiate Screen Urine Negative (Negative); PCP Screen Urine Negative (Negative); THC Screen Urine Positive (Negative)
[2024-11-21] MEDS: ibuprofen 600 mg Tablet PO ×2 (09:45→20:29)
[2024-11-21 14:00] VITALS: BP 119/73; PULSE 84; RESP 16; TEMP 36.7; O2SAT 95
[2024-11-21] MEDS: acetaminophen 325 mg Tablet 650 MG PO (14:40)
[2024-11-21 19:59] VITALS: BP 128/85; PULSE 71; RESP 18; TEMP 36.6; O2SAT 98
[2024-11-21] MEDS: OLANZapine 5 mg ODT PO (20:20)
[2024-11-22 06:00] VITALS: BP 119/85; PULSE 73; RESP 16; TEMP 36.3; O2SAT 98
[2024-11-22] MEDS: cetirizine 10 mg Tablet PO (08:14)
[2024-11-22] MEDS: acetaminophen 325 mg Tablet 650 MG PO ×2 (08:14→11:27)
[2024-11-22] MEDS: metoprolol succinate ER (24 HR) 25 mg Tablet PO (08:14)
[2024-11-22 14:00] VITALS: BP 119/72; PULSE 71; RESP 16; TEMP 36.4; O2SAT 95
[2024-11-22] MEDS: hyDROXYzine 25 mg Capsule 50 MG PO (14:59)
--- NOTE | 2024-11-22 19:47 | P.NPUPN_ITS ---
Subjective NPU 2 Subjective: 29-year-old male admitted with depressio n and suicidal ideation. The patient had reported an extended history of PTSD symptoms. He had reported having stopped his medication for several months. He had reported that Wellbutrin had not been helpful for his anxiety. He had reported previously having been on citalopram for depression and reported that he had been struggling with his mood and anxiety for several months. He had reported struggles with sleep for several months as well. He reported having no suicidal thoughts today and stated that he was hopeful about returning home soon. He had reported that he had recently lost his job over the last month. Mental Status Exam 2 MSE Comments: This is an overweight versus obese white male in hospital scrubs with fair grooming and eye contact. He was cooperative with exam in mild to moderate distress. Speech was decreased in rate and normal in volume. Mood described as depressed. Affect was restricted in range and mood congruent. Thought process was organized. Thought content: Patient denied current suicidal or homicidal ideation but acknowledged suicidal thoughts and possible statements leading to the hospitalization. There were no delusions reported or noted, he denied any auditory or visual hallucinations but did report some negative self talk. Attention and concentration were mostly intact and memory appeared somewhat reliable but there were likely things that were omitted or not given a full throat and response intentionally but no more formally tested. He is alert and oriented x 3. Insight and judgment are limited and impulse control is impaired. Vitals/I&O/Wt Last Vital Signs Temp 97.6 F 11/22/24 14:00 Pulse 71 11/22/24 14:00 Resp 16 11/22/24 14:00 BP 119/72 11/22/24 14:00 Pulse Ox 95 11/22/24 14:00 O2 Del Method Room Air 11/22/24 06:00 Weight last 48 hrs Weight 79.379 kg Data NPU 11/20/24 19:21 11/20/24 19:21 A&P Assessment and plan (1) Depression: Qualifiers: Depression Type: major depressive disorder Major depression recurrence: recurrent Major depression episode severity: mild (2) Post-traumatic stress disorder, chronic: (3) Moderate episode of recurrent major depressive disorder: (4) Cannabis use disorder, mild, abuse: (5) Suicidal ideation: (6) Caffeine dependence: (7) Difficulty controlling anger: Plan This is a 29-year-old white male with a reported extensive history of depression and anxiety and some addiction issues who was having suicidal thoughts yesterday reportedly which led to his hospitalization after his expressed concerns. The patient is experiencing anxiety, depression, and anger, which have been ongoing since childhood and have worsened over the years. There is a history of suicidal thoughts, although the patient does not currently believe in suicide. The patient reports a self-deprecating internal voice contributing to feelings of inadequacy as a and father. The patient has been on medication for these conditions but experienced adverse effects, leading to discontinuation. The patient was brought to the hospital following a report by a mandated carpenter form due to concerns about suicidal ideation. 1. Restart Celexa 20mg daily to target anxiety and depression. 2. Continue every 15 minute checks for safety. 3. Encourage individual, group and milieu therapy. 4. Encourage sober living treatment after discharge at the highest level of care to which he is willing to commit. 5. Obtain collateral information and evaluate for safety against the backdrop of the 96-hour hold. Involuntary Hold Information 2 96 Hour Hold: 96 Hour Involuntary Admission: Yes 96 Hour Hold Ending Date: 11/26/24 96 Hour Hold Ending Time: 00:01 Other Hold: Hold End Date: 11/26/24 Attestations NPU 2 Medical Necessity Statement*: Inpatient hospitalization is medically necessary and the clinically appropriate intervention at this time. We will monitor medications and make changes as indicated. Likely length of stay is 2-4 days. Coding Level of Care Code Acute Code for [facility] Fwd Diagnoses Depression F32.A Depression Type: major depressive disorder Major depression recurrence: recurrent Major depression episode severity: mild Post-traumatic stress disorder, chronic F43.12 Moderate episode of recurrent major depressive disorder F33.1 Cannabis use disorder, mild, abuse F12.10 Suicidal ideation R45.851 Caffeine dependence F15.20 Difficulty controlling anger R45.4
[2024-11-22 20:56] VITALS: BP 138/83; PULSE 78; RESP 18; TEMP 36.9; O2SAT 96
[2024-11-22] MEDS: ibuprofen 600 mg Tablet PO (21:32)
[2024-11-22] MEDS: OLANZapine 5 mg ODT PO (21:32)
[2024-11-23 06:00] VITALS: BP 135/87; PULSE 75; RESP 16; TEMP 36.3; O2SAT 96
[2024-11-23] MEDS: cetirizine 10 mg Tablet PO (08:20)
[2024-11-23] MEDS: metoprolol succinate ER (24 HR) 25 mg Tablet PO (08:20)
[2024-11-23] MEDS: citalopram 20 mg Tablet PO (08:21)
[2024-11-23] MEDS: acetaminophen 325 mg Tablet 650 MG PO (09:14)
[2024-11-23] MEDS: ibuprofen 600 mg Tablet PO (16:07)
[2024-11-23 16:39] VITALS: BP 135/87; PULSE 75; RESP 16; TEMP 36.3; O2SAT 96
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
== END 2024-11-23 17:28 | disposition home or self-care (01) | DRG 885 ==
LOC: ER 19:45 → NP 20:43
PROVIDERS: Admitting Provider Psychiatry & Neurology Psychiatry; Emergency Provider Emergency Medicine; PCP Family Medicine; Visit Provider Psychiatry & Neurology Psychiatry
DX: F33.1 Major depressive disorder, recurrent, moderate (principal); R45.851 Suicidal ideations; F43.12 Post-traumatic stress disorder, chronic; F12.10 Cannabis abuse, uncomplicated; R45.4 Irritability and anger; F41.9 Anxiety disorder, unspecified; E66.9 Obesity, unspecified; Z68.28 Body mass index [BMI] 28.0-28.9, adult; F10.11 Alcohol abuse, in remission
CPT/HCPCS: 36415; 80053; 80306; 80307; 85025; 90935; 97150; 97165; 99285